=== PATIENT | male | born 1980 | race Caucasian/White ===

== ENCOUNTER 2020-10-08 16:12 | Emergency (ER) | payer OTHER, SELFPAY ==
--- NOTE | 2020-10-08 16:13 | PC.NURSE ---
pt states he does not need to be seen. states he under treatment for cancer and such and if it is recorded that he uses drugs his treatment will get cancelled. pt unable to open his eyes all the way up. talkative.
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
== END 2020-10-09 03:03 | disposition left against medical advice (07) ==
DX: R41.82 Altered mental status, unspecified (principal)
CPT/HCPCS: 99199

== ENCOUNTER 2021-01-18 05:34 | Emergency (ER) | payer OTHER, SELFPAY ==
[2021-01-18 05:36] VITALS: BP 155/99; PULSE 80; RESP 16; TEMP 36.4; O2SAT 100
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
--- NOTE | 2021-01-18 05:53 | PC.NURSE ---
Unable to obtain IV access x3. Verbal order obtained for 60mg IM toradol
[2021-01-18] MEDS: KETOROLAC (*BKC) 60 MG/2 ML VIAL IM (05:57)
[2021-01-18 06:47] VITALS: BP 145/87; PULSE 87; RESP 18; O2SAT 100
--- NOTE | 2021-01-18 06:47 | PC.NURSE ---
Mathew called for report. 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
== END 2021-01-18 06:59 | disposition home or self-care (01) ==
LOC: ANHED 06:51
PROVIDERS: Emergency Provider Emergency Medicine; PCP Internal Medicine
DX: S76.911A Strain of unspecified muscles, fascia and tendons at thigh level, right thigh, initial encounter (principal); F11.20 Opioid dependence, uncomplicated; X50.9XXA Other and unspecified overexertion or strenuous movements or postures, initial encounter
CPT/HCPCS: 96372; 99283; J1885